=== PATIENT | female | born 1975 | race Hispanic/Latino ===

== ENCOUNTER 2021-10-10 23:22 | Emergency (ER) | payer BC ==
--- OUTSIDE RECORDS SUMMARY | 2021-10-10 23:24 | XMS REPORT | Clinical Summary ---
:1975 Author Organization [facility] Address [address] [place] [address] Care Team Providers Name Role Phone Anastacia Goyal MD Primary Care Provider Allergies No known active allergies Medications Medication Sig Dispensed Refills Start Date End Date Status phentermine (ADIPEX-P) Take 37.5 mg by 0 08/11/2017 Active 37.5 mg tablet mouth twice daily. multivitamin capsule Take 1 capsule by 0 Active mouth daily. fish oil-omega-3 fatty Take 2 g by mouth 0 Active acids 300-1,000 mg daily. capsule venlafaxine Take 1 capsule 30 capsule 6 09/02/2018 A ctive (EFFEXOR-XR) 37.5 mg (37.5 mg) by 24 hr mouth every capsuleIndications: morning. Malignant neoplasm of endocervix cholecalciferol, Take 1 tablet 30 tablet 0 09/02/2018 Active vitamin D3, (1,000 Units) by (cholecalciferol) mouth daily. 1,000 units tabletIndications: Malignant neoplasm of endocervix Active Problems Problem Noted Date Menopause 09/02/2018 Cervical cancer Surgical History Surgery Date Site/Laterality Comments SECTION, CLASSIC 05/26/1999 - 05/25/2000 SECTION, CLASSIC 05/26/2007 - 05/25/2008 Family History Medical History Relation Name Comments -Unknown cancer Maternal Aunt Relation Name Status Comments Maternal Aunt Social History Tobacco Use Types Packs/Day Years Used Date Former Smoker Cigarettes 0 Quit: 1996 Smokeless Tobacco: Never Used Comments: pt smoked socially Alcohol Use Standard Drinks/Week Comments Yes 0 (1 standard drink = 0.6 oz pure alcoho l) not currently Alcohol Habits Answer Date Recorded How often do you have a drink containing alcohol? Not asked How many drinks containing alcohol do you have on a Not aske d typical day when you are drinking? How often do you have six or more drinks on one occasion? No t asked Comment: not currently 08/15/2017 Sex Assigned at Date Recorded Not on file Obstetrics History Para Term AB IAB SAB Ectopic Multiple Living Live Births 5 5 4 4 Date Outcome GA Total Labor/2nd/3rd Weight Sex Delivery Anes PTL Maggi A 1 A5 Name Clin Labor Term Term Term Term Para Comments MENARCHE- 13 OCPS- DEPO 2-3 YRS; HRT- NEVER PAP- HX of abn pap started in ; hx of cryo; Hx of cervical ca mmg- never Last Filed Vital Signs Not on file Plan of Treatment Health Maintenance Due Date Last Done Comments COVID-19 Vaccination (1) 1981 Results Not on fileafter 10/10/2020 Insurance Payer Benefit Plan / Subscriber ID Effective Dates Phone Addre ss Type Group [place]PO POS [id number] 2015-Present [id number] [place] [address] Gerardo Personal/Family Self 1975 [address] ([place]) [place] [address] Gerardo Personal/Family Self 1975 [address] ([place]) [place] [id number] 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
--- OUTSIDE RECORDS SUMMARY | 2021-10-10 23:24 | XMS REPORT | Continuity of Care Document ---
:1975 Author Organization [facility] t Address [address] [place] [address] Care Team Providers Name Role Phone SAMANTHA LAWAnandHOME Primary Care Physician Unavailable García Cartwright Attending Clinician Eleni AGUILARP Attending Clinician Shonda ALFARO Attending Clinician Unavailable Doctor Unassigned, Name Attending Clinician Unavailable Only, Db Test Attending Clinician Unavailable Juan Miguel GUILLEN Attending Clinician JUAN MIGUEL Attending Clinician Unavailable Payers Payer Name Policy Type Policy Number Effective Date Expiration Date S ource Problems Condition Condition Condition Status Onset Resolution Last Treating Co mments Source Name Details Category Date Date Treatment Clinician Date Menopause Menopause Disease Active 4-Jeni Lambert 00:00: n 00 No known No known Disease Unive rs active active ity of problems problems [facility] Cervical Cervical Disease Active cancer cancer Fausto kapadia Allergies, Adverse Reactions, Alerts Allergy Allergy Status Severity Reaction(s) Onset Inactive Treating Comm ents Source Name Type Date Date Clinician NO KNOWN Drug Active Univers ALLERGIE Class ity of S [facility] Family History Family Member Diagnosis Comments Start Date Stop Date Source Maternal aunt -Unknown cancer Social History Social Habit Start Date Stop Date Quantity Comments Source History LAVERN Bans[place] Alcohol Binge History of Current smoker MD Fausto kapadia tobacco use History LAVERN [place] Alcohol Frequency History LAVERN [place] Alcohol Std Drinks Exposure to 2021-09-30 2021-10-10 Not sure University of SARS-CoV-2 00:00:00 09:03:00 [facility] (event) Branch Alcohol intake 2018-09-11 2018-09-11 Current drinker MD Cherie to 00:00:00 00:00:00 of alcohol (finding) History SDOH 2017-08-15 2017-08-15 not currently MD Baca on Alcohol Comment 00:00:00 00:00:00 Tobacco Comment 2017-08-15 2017-08-15 pt smoked MD Baca on 00:00:00 00:00:00 socially Tobacco use and 2017-08-15 2017-08-15 Smokeless tobacco Rolf exposure 00:00:00 00:00:00 non-user Sex Ass[birth year] At [birth year] MD Baca on 00:00:00 00:00:00 Smoking Status Start Date Stop Date Source Never smoker [facility] Ex-smoker 2017-08-15 00:00:00 2017-08-15 00:00:00 MD Brooks son Medications Ordered Filled Start Stop Current Ordering Indication Dosage Frequency Signature Comments Components Source Medication Medication Date Date Medication? Clinician (SIG) Name Name traMADoL 50 Yes TAKE ONE Un cuauhtemoc mg tablet 5-16 (1) ity of 00:00: TABLET(S) [place] 00 BY MOUTH Medical TWICE A Branch DAY NEEDED FOR PAIN. WEGOVY 0.25 Yes INJECT 0.5 Univers mg/0.5 mL 4-05 ML(S) ity of PnIj [place] 00:00: (0.25MG) [place] injection 00 SUBCUTANEO Medi [place] USLY ONCE Branch A WEEK. multivitami Yes 1{capsu Take 1 M D n capsule 4-10 le} capsule by Seth rso 14:00: mouth n 24 daily. fish Yes 2g Take 2 g MD oil-omega-3 4-10 by mouth Seth rso fatty acids 14:00: daily. n 300-1,000 24 mg capsule venlafaxine Yes Malignant 37.5mg Take 1 MD (EFFEXOR-XR 4-10 neoplasm of capsule Anderso ) 37.5 mg 00:00: endocervix (37.5 mg) n 24 hr 00 by mouth capsule every morning. cholecalcif Yes Malignant 1000U Take 1 MD cary, 4-10 neoplasm of tablet Todd so vitamin D3, 00:00: endocervix (1,000 n (cholecalci 00 Units) by ferol) mouth 1,000 units daily. tablet phentermine Yes 37.5mg Take 37.5 MD (ADIPEX-P) 3-19 mg by Anderso 37.5 mg 00:00: mouth n tablet 00 twice daily. HYDROcodone Yes 1{tbl} Take 1 Tab Univers -acetaminop 8-01 by mouth ity of [place] ([place] 07:26: every 6 [place] 5) 5-325 mg 27 (six) Medical tablet hours as Branch needed. HYDROcodone Yes 1{tbl} Take 1 Tab Univers -acetaminop 8-01 by mouth ity of [place] ([place] 07:26: every 6 [place] 5) 5-325 mg 27 (six) Medical tablet hours as Branch needed. HYDROcodone Yes 1{tbl} Take 1 Tab Univers -acetaminop 8-01 by mouth ity of [place] ([place] 07:26: every 6 [place] 5) 5-325 mg 27 (six) Medical tablet hours as Branch needed. ondansetron Yes 4mg Take 1 Tab Univers (ZOFRAN) 4 8-01 by mouth ity o f mg tablet 00:00: every 6 [place] 00 (six) Medical hours as Branch needed for Nausea and Vomiting (N/V). ondansetron 2014-0 Yes 4mg Take 1 Tab Univers (ZOFRAN) 4 8-01 by mouth ity o f mg tablet 00:00: every 6 [place] 00 (six) Medical hours as Branch needed for Nausea and Vomiting (N/V). ondansetron 2014-0 Yes 4mg Take 1 Tab Univers (ZOFRAN) 4 8-01 by mouth ity o f mg tablet 00:00: every 6 [place] 00 (six) Medical hours as Branch needed for Nausea and Vomiting (N/V). Vital Signs Vital Name Observation Time Observation Value Comments Source Systolic blood 2021-10-10 14:19:00 132 mm[Hg] Univer sity of pressure [facility] Diastolic blood 2021-10-10 14:19:00 88 mm[Hg] Unive [facility] Heart rate 2021-10-10 14:18:00 72 /min [facility] Body temperature 2021-10-10 14:18:00 36.5 Jaja [facility] Respiratory rate 2021-10-10 14:18:00 18 /min [facility] Body height 2021-10-10 14:18:00 154.9 cm [facility] Body weight 2021-10-10 14:18:00 69.446 kg [facility] BMI 2021-10-10 14:18:00 28.93 kg/m2 [facility] Oxygen saturation in 2021-10-10 14:18:00 98 /min [facility] Arterial blood by [facility] Pulse oximetry [place] Procedures Procedure Date / Time Performing Clinician Source Performed NO SHOW OR MISSED 2021-10-10 14:05:59 Doctor Unassigned, [facility] APPOINTMENT POLICY [facility] ACKNOWLEDGEMENT Plan of Care Planned Activity Planned Date Details Comments Source Future Scheduled Test 1981 00:00:00 COVID-19 Vaccination MD Bansal (1) [code = COVID-19 Vaccination (1)] Encounters Start End Encounter Admission Attending Care Care Encounter Source Date/Time Date/Time Type Type Clinicians Facility Department ID 2021-10-10 2021-10-10 Urgent García Alfaro [facility] [id number] Univers 09:20:00 09:40:00 [facility] [id number] [facility] [id number] Rico as KANIKA?BLEA [id number] [address] MEDICAL OFFICE BUILDING 2021-10-10 2021-10-10 Outpatient R [facility] [id number] Univers 09:20:00 09:20:00 [id number] ity [facility] 2021-10-10 2021-10-10 Outpatient R ANGELINA [facility] [id number] Univers 09:20:00 09:20:00 GARCÍA callejas [facility] 2021-10-10 2021-10-10 Orders Doctor RUSHING [id number] Univers 00:00:00 00:00:00 Only Unassigned, SINA [id number] ity of [place] [id number] [place] as [id number] [address] 2021-06-03 2021-06-03 Laboratory Only, Ang Db Test [facility] [id number] Univers 20:15:00 20:15:00 Only Juan Miguel [facility] [id number] ity of [place] [id number] [place] as KANIKA?BLEA [id number] [address] MEDICAL OFFICE BUILDING 2021-06-03 2021-06-03 Outpatient R JUAN MIGUEL [facility] [id number] Univers 20:15:00 16:33:23 KENNEDY [facility] Results This patient has no known results.
[2021-10-11] MEDS ORDERED: dexAMETHasone 10 MG/ML VIAL ONE (00:17)
[2021-10-11] MEDS ORDERED: NA CHLORIDE 0.9% 1,000 ML ONE (00:17)
[2021-10-11] MEDS ORDERED: ONDANSETRON 4 MG/2 ML VIAL ONE (00:17)
[2021-10-11] MEDS ORDERED: MORPHINE 2 MG/ML SYR ONE (00:17)
--- NOTE | 2021-10-11 01:46 | ER ---
Nurse's Notes [facility] Name: Alisson Carrillo Age: 46 yrs Sex: Female : 1975 Arrival Date: 10/10/2021 Time: 23:25 Bed 3 Private MD: Diagnosis: Migraine, unspecified, not intractable, without status migrainosus Presentation: 10/11 00:02 Chief complaint: Patient states: I have a throbbing pain behind my eyes, I started at jb4 5pm yesterday. I started vomiting then. I have vomited twice so far. I feel nauseous and still have that pain behind my eyes. Coronavirus screen: At this time, the client does not indicate any symptoms associated with coronavirus-19. Ebola Screen: No symptoms or risks identified at this time. Initial Sepsis Screen: Does the patient meet any 2 criteria? No. Patient's initial sepsis screen is negative. Does the patient have a suspected source of infection? No. Patient's initial sepsis screen is negative. Risk Assessment: Do you want to hurt yourself or someone else? Patient reports no desire to harm self or others. Onset of symptoms was October 11, 2021. Transition of care: patient was not received from another setting of care. 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 - Social history:: Smoking status: Patient denies any tobacco usage or history of. - Family history:: not pertinent. - Hospitalizations: : No recent hospitalization is reported. Screenin:40 Abuse screen: Denies threats or abuse. Nutritional screening: No deficits noted. ll3 Tuberculosis screening: No symptoms or risk factors identified. Fall Risk No fall in past 12 months (0 pts). No secondary diagnosis (0 pts). IV access (20 points). Ambulatory Aid- None/Bed Rest/Nurse Assist (0 pts). Gait- Normal/Bed Rest/Wheelchair (0 pts) Mental Status- Oriented to own ability (0 pts). Total Kaur Fall Scale indicates No Risk (0-24 pts). Assessment: 00:39 General: Appears uncomfortable, Behavior is calm, cooperative. Pain: Complains of pain ll3 in forehead Pain began 2-3 days ago. Neuro: Level of Consciousness is awake, alert, obeys commands, Oriented to person, place, time, situation, Reports dizziness, headache frontal area, weakness. GI: Abdomen is round non-distended, Reports nausea, vomiting. Derm: Skin is pink, warm \T\ dry. 01:35 General: Appears in no apparent distress. as6 Vital Signs: 00:02 BP 136 / 95; Pulse 75; Resp 16; Pulse Ox 99% on R/A; Weight 69.4 kg (R); Height 5 ft. 1 jb4 in. (154.94 cm); Pain 8/10; 00:43 BP 125 / 83; Pulse 66; Resp 15; Pulse Ox 99% ; ll3 01:34 BP 133 / 93; Pulse 73; Resp 18 S; Pulse Ox 99% on R/A; as6 02:00 BP 143 / 87; Pulse 67; Resp 18 S; Pulse Ox 99% on R/A; as6 00:02 Body Mass Index 28.91 (69.40 kg, 154.94 cm) jb4 [place] Coma Score: 01:44 Eye Response: spontaneous(4). Verbal Response: oriented(5). Motor Response: obeys rn commands(6). Total: 15. ED Course: 10/10 23:25 Patient arrived in ED. bp1 23:29 Jelani Burden MD is Attending Physician. rn 10/11 00:05 Triage completed. jb4 00:06 Arm band placed on right wrist. jb4 00:39 Dino Argueta, SAGAR is Primary Nurse. ll3 00:40 Patient has correct armband on for positive identification. Placed in gown. Bed in low ll3 position. Call light in reach. Side rails up X 1. Adult w/ patient. 00:40 Inserted saline lock: 22 gauge in left antecubital area, using aseptic technique. ll3 00:52 CT Head Brain wo Cont In Process Unspecified. EDMS 02:11 No provider procedures requiring assistance completed. IV discontinued, intact, as6 bleeding controlled, No redness/swelling at site. Pressure dressing applied. Administered Medications: 00:35 Drug: Zofran (Ondansetron) 4 mg Route: IVP; Site: left antecubital; ll3 02:10 Follow up: Response: No adverse reaction as6 00:38 Drug: Decadron - Dexamethasone 10 mg Route: IVP; Site: left antecubital; ll3 02:10 Follow up: Response: No adverse reaction as6 00:39 Drug: morphine 2 mg Route: IVP; Site: left antecubital; ll3 02:10 Follow up: Response: No adverse reaction; RASS: Alert and Calm (0) as6 00:40 Drug: NS 0.9% 1000 ml Route: IV; Rate: 1000 ml; Site: left antecubital; ll3 02:10 Follow up: Response: No adverse reaction; IV Status: Completed infusion; IV Intake: as6 1000ml Medication: 02:11 VIS not applicable for this client. as6 Intake: 02:10 IV: 1000ml; Total: 1000ml. as6 Outcome: 01:46 Discharge ordered by . rn 02:11 Discharged to home ambulatory, with family. as6 02:11 Condition: stable 02:11 Discharge instructions given to patient, Instructed on discharge instructions, follow up and referral plans. Demonstrated understanding of instructions, follow-up care. 02:12 Patient left the ED. as6 Signatures: Dispatcher [employer] EDJelani Garcia MD MD rn Bryson, James, RN RN jb4 Alesia Francisco Ashby, RN RN as6 Dino Argueta RN RN ll3
--- NOTE | 2021-10-11 01:46 | EDPHYS ---
Physician Documentation [facility] [place] [facility] Name: Alisson Carrillo Age: 46 yrs Sex: Female : 1975 Arrival Date: 10/10/2021 Time: 23:25 Bed 3 Private MD: ED Physician Jelani Burden HPI: 10/11 00:24 This 46 yrs old Female presents to ER via Ambulatory with complaints of rn Vomiting, Headache. 00:24 The patient presents to the emergency department with nausea, vomiting. rn 00:24 The patient complains of pain to the forehead and right eye. The patient describes the rn headache as aching. Onset: The symptoms/episode began/occurred yesterday. Associated signs and symptoms: Pertinent positives: nausea, vomiting, Pertinent negatives: altered mental status, fever, neck stiffness, rash, vision changes, vision loss, vertigo. Severity of symptoms: At its worst the pain was moderate, "similar to past headaches", in the emergency department the pain is unchanged. The symptoms are alleviated by nothing. the symptoms are aggravated by nothing. The patient has experienced similar episodes in the past. The patient has not recently seen a physician. Pt reports hx of headaches in past, is similar to others today, only worse. Reports throbbing, right side and behind right eye. No fever. No neck stiffness. No trauma. No famhx of neurological problems. No focal neuro complaints. No vision changes. Does not feel ill. . 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 - Social history:: Smoking status: Patient denies any tobacco usage or history of. - Family history:: not pertinent. - Hospitalizations: : No recent hospitalization is reported. ROS: 00:24 Constitutional: Negative for fever, chills, and weight loss, Eyes: Negative for injury, rn pain, redness, and discharge, ENT: Negative for injury, pain, and discharge, Neck: Negative for injury, pain, and swelling, Cardiovascular: Negative for chest pain, palpitations, and edema, Respiratory: Negative for shortness of breath, cough, wheezing, and pleuritic chest pain, Abdomen/GI: + nausea/vomiting, neg for abd pain/diarrhea Back: Negative for injury and pain, : Negative for injury, bleeding, discharge, and swelling, MS/Extremity: Negative for injury and deformity, Skin: Negative for injury, rash, and discoloration, Neuro: Negative for weakness, numbness, tingling, and seizure. Exam: 00:24 Constitutional: This is a well developed, well nourished patient who is awake, alert, rn and in no acute distress. Head/Face: Normocephalic, atraumatic. Eyes: Pupils equal round and reactive to light, extra-ocular motions intact. Periorbital areas with no swelling, redness, or edema. Neck: Trachea midline, no masses palpated, and no cervical lymphadenopathy. Supple, full range of motion without nuchal rigidity, or vertebral point tenderness. No Meningismus. Cardiovascular: Regular rate and rhythm. No pulse deficits. Respiratory: No increased work of breathing, no retractions or nasal flaring. Skin: Warm, dry MS/ Extremity: Pulses equal, no cyanosis. Neuro: Awake and alert, GCS 15, oriented to person, place, time, and situation. Cranial nerves II-XII grossly intact. Motor strength 5/5 in all extremities. Sensory grossly intact. Cerebellar exam normal. Normal gait. Vital Signs: 00:02 BP 136 / 95; Pulse 75; Resp 16; Pulse Ox 99% on R/A; Weight 69.4 kg (R); Height 5 ft. 1 jb4 in. (154.94 cm); Pain 8/10; 00:43 BP 125 / 83; Pulse 66; Resp 15; Pulse Ox 99% ; ll3 01:34 BP 133 / 93; Pulse 73; Resp 18 S; Pulse Ox 99% on R/A; as6 02:00 BP 143 / 87; Pulse 67; Resp 18 S; Pulse Ox 99% on R/A; as6 00:02 Body Mass Index 28.91 (69.40 kg, 154.94 cm) jb4 [place] Coma Score: 01:44 Eye Response: spontaneous(4). Verbal Response: oriented(5). Motor Response: obeys rn commands(6). Total: 15. MDM: 10/10 23:29 Patient medically screened. rn 10/11 01:44 Differential diagnosis: cluster headache, hypertensive headache, migraine, neoplasm, rn tension headache, trigeminal neuralgia, vasomotor headache. Data reviewed: vital signs, nurses notes, radiologic studies, CT scan, and as a result, I will discharge patient. Counseling: I had a detailed discussion with the patient and/or guardian regarding: the historical points, exam findings, and any diagnostic results supporting the discharge/admit diagnosis, radiology results, the need for outpatient follow up, to return to the emergency department if symptoms worsen or persist or if there are any questions or concerns that arise at home. Response to treatment: the patient's symptoms have resolved after treatment, the patient's condition has returned to base line, the patient is now symptom free, and as a result, I will discharge patient. Special discussion: I discussed with the patient/guardian in detail that at this point there is no indication for admission to the hospital. It is understood, however, that if the symptoms persist or worsen the patient needs to return immediately for re-evaluation. Based on the history and exam findings, there is no indication for further emergent testing or inpatient evaluation. I discussed with the patient/guardian the need to see the neurologist for further evaluation of the symptoms. ED course: Headache resolved, will dc home with return precautions, urged to f/u with neurology. Pt is happy and thankful.. 10/11 00:01 Order name: CT Head Brain wo Cont rn 10/11 00:01 Order name: IV Start; Complete Time: 00:42 rn Administered Medications: 00:35 Drug: Zofran (Ondansetron) 4 mg Route: IVP; Site: left antecubital; ll3 02:10 Follow up: Response: No adverse reaction as6 00:38 Drug: Decadron - Dexamethasone 10 mg Route: IVP; Site: left antecubital; ll3 02:10 Follow up: Response: No adverse reaction as6 00:39 Drug: morphine 2 mg Route: IVP; Site: left antecubital; ll3 02:10 Follow up: Response: No adverse reaction; RASS: Alert and Calm (0) as6 00:40 Drug: NS 0.9% 1000 ml Route: IV; Rate: 1000 ml; Site: left antecubital; ll3 02:10 Follow up: Response: No adverse reaction; IV Status: Completed infusion; IV Intake: as6 1000ml Disposition Summary: 10/11/21 01:46 Discharge Ordered Location: Home rn Problem: an acute exacerbation rn Symptoms: have improved rn Condition: Stable rn Diagnosis - Migraine, unspecified, not intractable, without status migrainosus rn Followup: rn - With: Private Physician - When: As needed - Reason: Recheck today's complaints, Re-evaluation by your physician Discharge Instructions: - Discharge Summary Sheet rn - Migraine Headache rn - Recurrent Migraine Headache rn Forms: - Medication Reconciliation Form rn - Thank You Letter rn - 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
[2021-10-11 02:24] VITALS: O2SAT 99
[2021-10-11 02:41] VITALS: BP 143/87
--- NOTE | 2021-10-11 11:15 | RAD REPORT ---
EXAM DESCRIPTION: CT - Head Brain Wo Cont - 10/11/2021 4:21 am CLINICAL HISTORY: Headache, new or worsening, positional COMPARISON: None Available. TECHNIQUE: Multiple helical axial tomographic images were obtained of the head without intravenous c ontrast. This exam was performed according to our departmental dose-optimization program, which inclu celeste automated exposure control, adjustment of the mA and/or kV according to patient size and/or use o f iterative reconstruction technique. FINDINGS: There is no acute intracranial hemorrhage. No mass. No midline shift. No ventriculomegaly. Solano-white matter differentiation is maintained. Paranasal sinuses are clear. Mastoid air cells and middle ear spaces are clear. Orbits and orbital co ntents are unremarkable. Osseous structures are unremarkable. Surrounding soft tissues are unremarkable. IMPRESSION: No acute intracranial process. Electronically signed by: Fernando Stevens MD 10/11/2021 1:08 AM CDT Due to temporary technical issues with the PACS/Fluency reporting system, reports are being signed by the in house radiologist without review as a courtesy to ensure prompt reporting. The interpreting r adiologist is fully responsible for the content of the report.
== END 2021-10-11 02:12 | disposition home or self-care (01) ==
LOC: ER 23:22
DX: G43.909 Migraine, unspecified, not intractable, without status migrainosus (principal); R11.2 Nausea with vomiting, unspecified; Z85.41 Personal history of malignant neoplasm of cervix uteri
CPT/HCPCS: 96361; 70450; 96375; 96374; 99284; J1100; J2270; J7030; J2405

== ENCOUNTER 2022-12-19 17:37 | Emergency (ER) | payer BC ==
--- OUTSIDE RECORDS SUMMARY | 2022-12-19 17:40 | XMS REPORT | Clinical Summary ---
:1975 Author Organization [facility] Address [address] [place] [address] Care Team Providers Name Role Phone Anastacia [...] Tobacco Use Types Packs/Day Years Used Date Smoking Tobacco: Former Cigarettes 0 Quit : 1996 Smokeless Tobacco: Never Comments: pt smoked socially Alcohol Use Standard Drinks/Week Comments Yes 0 (1 standard drink = 0.6 oz pure alcoho l) not currently Sex Assigned at Date Recorded Not on [...] Due Date Last Done Comments COVID-19 Vaccination (#1) 1975 Results Not on fileafter 12/19/2021 Insurance Payer Benefit Plan / Subscriber ID Effective Dates Phone Addre ss Type Group [place] POS [id number] 2015-Present [id number] [place] [address] Gerardo Personal/Family Self 1975 [address] ([place]) [place] [address] Gerardo Personal/Family Self 1975 [address] ([place] [phone] 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
--- OUTSIDE RECORDS SUMMARY | 2022-12-19 17:41 | XMS REPORT | Continuity of Care Document ---
:1975 Author Organization [facility] t Address [address] [place] [address] [place] [id number] Care Team Providers Name Role Phone THANH FRANCO Primary Care Physician Unavailable GARCÍA TRUJILLO Attending Clinician Unavailable Cassandra CLOAK ROOM ATTENDANTGarcía Davis Attending Clinician Alesia Resendiz Attending Clinician Doctor Unassigned, [place] Attending Clinician Unavailable BERNADETTE BULLARD Attending Clinician Unavailable Only, Ang Db Test Attending Clinician Unavailable Bernadette Snowden Attending Clinician RACHANA PRICE Attending Clinician Unavailable UNKNOWN, ATTENDING Attending Clinician Unavailable СЕРГЕЙ MCQUEEN Attending Clinician Unavailable ROYCE CONNOLLY Attending Clinician Unavailable Payers Payer Name Policy Type Policy Number Effective Date Expiration Date S tanvir [facility] [id number] 2013 00:00:00 Problems Condition Condition Condition Status Onset Resolution Last Treating Co mments Source Name Details Category Date Date Treatment Clinician Date Menopause Menopause Disease Active Uni vers 4-10 ity of 00:00: [place] 00 [facility] No known No known Disease Unive rs active active ity of problems problems [facility] Cervical Cervical Disease Active Unive rs cancer cancer ity of [place] MD [facility] Allergies, Adverse Reactions, Alerts Allergy Allergy Status Severity Reaction(s) Onset Inactive Treating Comm ents Source Name Type Date Date Clinician No Known Propensi Active Method i Drug ty to 11-17 st Allergie adverse 00:00: Hospita s reaction 00 l s to drug NO KNOWN Drug Active Univers ALLERGIE Class ity of S [facility] Family History Family Member Diagnosis Comments Start Date Stop Date Source Other Other [facility] Maternal aunt -Unknown cancer [facility] [place] MD [facility] [place] Social History Social Habit Start Date Stop Date Quantity Comments Source Gender identity [facility] History of tobacco Current smoker Un iversity of use [place] MD Todd cook [facility] Exposure to 2021-09-30 2021-10-10 Not sure [facility]-CoV-2 (event) 00:00:00 09:03:00 [facility] Tobacco use and 2019-12-27 2019-12-27 Never used Universit y of exposure 00:00:00 00:00:00 [facility] Alcohol intake 2018-09-11 2018-09-11 Current drinker Unive rsity of 00:00:00 00:00:00 of alcohol [place] MD Todd [facility] Tobacco Comment 2017-08-15 2017-08-15 pt smoked Universit y of 00:00:00 00:00:00 socially [place] MD Todd cook [facility] Alcohol Comment 2017-08-15 2017-08-15 not currently Univer sity of 00:00:00 00:00:00 [place] MD Todd cook [facility] History of Social 2015-11-18 2015-11-[address] function 00:00:00 00:00:00 Hospital Sex Assigned At [birth year] Universit y of 00:00:00 00:00:00 [place] MD Todd cook [facility] Smoking Status Start Date Stop Date Source Never smoker [facility] Ex-smoker 2017-08-15 00:00:00 2017-08-15 00:00:00 Universi ty of [facility] Medications Ordered Filled Start Stop Current Ordering Indication Dosage Frequency Signature Comments Components Source Medication Medication Date Date Medication? Clinician (SIG) Name Name traMADoL 50 Yes TAKE ONE Un cuauhtemoc mg tablet 5-16 (1) ity of 00:00: TABLET(S) [place] [id number] BY MOUTH Medical TWICE A Branch DAY NEEDED FOR PAIN. WEGOVY 0.25 Yes INJECT 0.5 Univers mg/0.5 mL 4-05 ML(S) ity of PnIj SC 00:00: (0.25MG) [place] injection 00 SUBCUTANEO Medi [place] USLY ONCE Branch A WEEK. multivitami Yes 1{capsu Take 1 U nivers n capsule 4-10 le} capsule by ity of 14:00: mouth [place] 24 daily. MD [facility] fish Yes 2g Take 2 g Univers oil-omega-3 4-10 by mouth ity of fatty acids 14:00: [place]. [place] 300-1,000 24 MD mg capsule [facility] venlafaxine Yes Malignant 37.5mg Take 1 Univers (EFFEXOR-XR 4-10 neoplasm of capsule ity of ) 37.5 mg 00:00: endocervix (37.5 mg) [place] 24 hr 00 by mouth MD capsule every [place] morning. n [facility] [place] cholecalcif Yes Malignant 1000U Take 1 Univers cary, 4-10 neoplasm of tablet ity o f vitamin D3, 00:00: endocervix (1,000 [place] (cholecalci 00 Units) by MD kwong) mouth [place] 1,000 units daily. n [facility] phentermine Yes 37.5mg Take 37.5 Univers (ADIPEX-P) 3-19 mg by ity of 37.5 mg 00:00: mouth [place] tablet 00 twice MD daily. [facility] HYDROcodone Yes 1{tbl} Take 1 Tab Univers [...] Medical tablet hours as Branch needed. ondansetron 2014-0 Yes 4mg Take 1 Tab Univers (ZOFRAN) 4 8-01 by mouth ity o f mg tablet 00:00: every 6 [place] 00 (six) Medical hours as Branch needed for Nausea and Vomiting (N/V). ondansetron 2015-0 Yes 4mg Take 1 Tab Univers (ZOFRAN) 4 8-01 by mouth ity o f mg tablet 00:00: every 6 [place] 00 (six) Medical hours as Branch needed for Nausea and Vomiting (N/V). ondansetron 2015-0 Yes 4mg Take 1 Tab Univers (ZOFRAN) 4 8-01 by mouth ity o f mg tablet 00:00: every 6 [place] 00 (six) Medical hours as Branch needed for Nausea and Vomiting (N/V). Vital Signs Vital Name Observation Time Observation Value Comments Source Systolic blood 2021-10-10 14:19:00 132 mm[Hg] [facility] Diastolic blood 2021-10-10 14:19:00 88 mm[Hg] [facility] Heart rate 2021-10-10 14:18:00 72 /min [facility] Body temperature 2021-10-10 14:18:00 36.5 Jaja [facility] Respiratory rate 2021-10-10 14:18:00 18 /min [facility] Body height 2021-10-10 14:18:00 154.9 cm [facility] Body weight 2021-10-10 14:18:00 69.446 kg [facility] BMI 2021-10-10 14:18:00 28.93 kg/m2 [facility] Oxygen saturation in 2021-10-10 14:18:00 98 /min [facility] Arterial blood by [place] [facility] Pulse oximetry Branch Procedures Procedure Date / Time Performing Clinician Source Performed NO SHOW OR MISSED 2021-10-10 14:05:59 Doctor Unassigned, [facility] APPOINTMENT POLICY [place] ACKNOWLEDGEMENT Plan of Care Planned Activity Planned Date Details Comments Source Future Scheduled 2022-11-12 Screening for [facility] Test 09:08:45 malignant neoplasm of colon (procedure) [code = 304767062] Future Scheduled 2022-11-12 [facility] Test 09:08:45 malignant neoplasm of colon (procedure) [code = 261139745] Future Scheduled 2022-11-12 [facility] Test 09:08:45 malignant neoplasm of colon (procedure) [code = 181167464] Future Scheduled 2022-11-12 COVID-19 VACCINE (#[facility]) [facility] Test 09:08:45 [code = COVID-19 VACCINE (#1)] Future Scheduled 2022-11-12 BREAST CANCER [facility] Test 09:08:45 SCREENING [code = BREAST CANCER SCREENING] Future Scheduled 2022-11-12 [facility] Test 09:08:45 malignant neoplasm of cervix (procedure) [code = 428755977] Future Scheduled 2022-11-12 [facility] Test 09:08:45 malignant neoplasm of colon (procedure) [code = 311377766] Future Scheduled 2022-11-12 [facility] Test 09:08:45 malignant neoplasm of colon (procedure) [code = 008856817] Future Scheduled 2022-11-12 INFLUENZA VACCINE [facility] Test 09:08:45 [code = INFLUENZA VACCINE] Future Scheduled 2021-11-28 COVID-19 Vaccination Uni [facility] Test 05:34:24 (#1) [code = COVID-19 [facility] (#1)] Center Encounters Start End Encounter Admission Attending Care Care Encounter Source Date/Time Date/Time Type Type Clinicians Facility Department ID 2021-10-10 2021-10-10 Outpatient R CASSANDRA [facility] [id number] Univers 09:20:00 09:43:56 GARCÍA pelayo f [facility] 2021-10-10 2021-10-10 Urgent García Trujillo [facility] [id number] Univers 09:20:00 09:40:00 Care [facility] [id number] itximena [facility] [id number] [place] as KANIKA?BLEA [id number] [address] MEDICAL OFFICE BUILDING 2021-10-10 2021-10-10 Orders Doctor RUSHING [id number] Univers 00:00:00 00:00:00 Only Unassigned, SINA [id number] [facility] [id number] [place] as [id number] [address] 2021-06-03 2021-06-03 Outpatient R UJAN MIGUEL [facility] [id number] Univers 20:15:00 20:15:00 [facility] 2021-06-03 2021-06-03 Laboratory Only, Ang Db Test [facility] [id number] Univers 20:15:00 20:15:00 Only Juan Miguel [facility] [id number] ity of [place] [id number] [place] as KANIKA?BLEA [id number] [address] MEDICAL OFFICE BUILDING 2021-06-03 2021-06-03 Outpatient R JUAN MIGUEL [facility] [id number] Univers 20:15:00 16:33:23 [facility] 2021-02-05 2021-02-05 Outpatient R DEE [facility] [id number] Univers 12:00:00 12:00:00 RACHANA [facility] 2021-02-04 2021-02-04 Outpatient R RASHAWN [facility] [id number] Univers 10:00:00 10:00:00 ATTENDING [facility] 2020-09-17 2020-09-17 Outpatient R RICHAR [facility] [id number] Univers 09:20:00 09:20:00 СЕРГЕЙ [facility] 2019-12-27 2019-12-27 Outpatient R MOHSEN [facility] [id number] Univers 10:00:00 10:00:00 ROYCE [facility] Results This patient has no known results.
[2022-12-19] MEDS ORDERED: ONDANSETRON 4 MG/2 ML VIAL ONE (17:50)
[2022-12-19] MEDS ORDERED: MORPHINE 4 MG/ML SYR ONE ×2 (17:50→19:56)
[2022-12-19] MEDS ORDERED: NA CHLORIDE 0.9% 1,000 ML ONE (17:50)
[2022-12-19 18:09] LABS: Absolute Lymphocytes (CBC) 1.2 K/uL (0.7-4.9); Hematocrit 39.6 % (36.0-45.0); Lymphocytes % 13.4 % (15.3-44.8); MCV 87.8 fL (80-100); MPV 8.1 fL (7.6-11.3); RBC Red Blood Cell Count 4.51 M/uL (3.86-4.86)
[2022-12-19] MEDS ORDERED: FAMOTIDINE 20 MG/2 ML VIAL IV ONE (18:14)
--- NOTE | 2022-12-19 18:15 | RAD REPORT ---
EXAM DESCRIPTION: RAD - Chest Single View - 12/19/2022 6:02 pm CLINICAL HISTORY: upper abdomen pain COMPARISON: No comparisons FINDINGS: Lines: None. Lungs: No evidence of edema or pneumonia. Pleural: No significant pleural effusions or pneumothorax. Cardiac: The heart size is within normal limits. Mediastinum: Within normal limits. Bones: No acute fractures. Other: None IMPRESSION: No acute cardiopulmonary disease.
[2022-12-19 18:37] LABS: Albumin 3.8 g/dL (3.4-5.0); Bilirubin Total 0.8 mg/dL (0.2-1.0); Potassium 3.2 mEq/L (3.5-5.1); Protein, Total 7.2 g/dL (6.4-8.2)
--- NOTE | 2022-12-19 18:41 | RAD REPORT ---
EXAM DESCRIPTION: CTAbdomen Pelvis W Contrast - 12/19/2022 6:18 pm CLINICAL HISTORY: ABD PAIN COMPARISON: Abdomen Pelvis W Contrast dated 03/21/2017 TECHNIQUE: CT of the abdomen and pelvis was performed. All CT scans are performed using dose optimization technique as appropriate and may include automated exposure control or mA/KV adjustment according to patient size. FINDINGS: Lower chest: No acute abnormality. Liver: No acute abnormality or suspicious lesions. Biliary: No biliary ductal dilatation. Stomach: No significant focal abnormality. Duodenum: No significant focal abnormality. Pancreas: No significant abnormality. Spleen: No significant abnormality. Adrenal: No suspicious lesions. Kidney/ureter: No hydronephrosis. No renal calculi. Retroperitoneum: No retroperitoneal adenopathy. Vascular: No aneurysm. Bowel: Inflammatory changes are present the ileum. Upstream dilatation is present measuring up to 2.2 cm. Mesenteric edema is present.. Peritoneum: Small volume of ascites. Small fat containing umbilical hernia. Bladder: Grossly unremarkable. Reproductive: Hysterectomy. Bones: No acute fracture. Other: n/a IMPRESSION: Long segment inflammatory changes involving the ileum with upstream dilatation that may reflect a partial small bowel obstruction secondary to an inflammatory stricture. Source of the infla mmation could be secondary to postradiation changes. The patient has reportedly had cervical cancer. It could also be seen with infectious and inflammatory etiologies such as inflammatory bowel disease.
[2022-12-19] MEDS ORDERED: POTASSIUM 25 MEQ EFFERV TAB ONE (19:07)
--- NOTE | 2022-12-19 19:29 | EDPHYS ---
Physician Documentation [facility] Name: Alisson Jamil Age: 47 yrs Sex: Female : 1975 Arrival Date: 12/19/2022 Time: 17:37 Bed 14 Private MD: ED Physician Lelia Valles HPI: 12/19 18:00 This 47 yrs old Female presents to ER via EMS with complaints of Abdominal cp Pain. 18:00 The patient presents with abdominal pain. Onset: The symptoms/episode began/occurred cp suddenly, today. Associated signs and symptoms: Pertinent positives: nausea and vomiting, 1 episode of diarrhea. 18:00 The symptoms are described as constant. Severity of pain: in the emergency department cp the pain is actually worse markedly. Patient is a 47-year-old female with past medical history significant for cervical cancer in which she underwent chemo and radiation several years ago. Patient reports sudden onset of abdominal pain this afternoon that she thought was may be due to something she ate at work today. Patient reports vomiting several times and having 1 episode of vomiting before calling EMS to come to the emergency department. Patient reports having 2 C-sections in the past but no other abdominal surgeries. Historical: - Allergies: 17:46 No Known Allergies; bp - PMHx: 17:46 cervical cancer; bp - PSHx: 17:46 ; bp - Immunization history:: Adult Immunizations up to date. - Social history:: Smoking status: Patient denies any tobacco usage or history of. ROS: 18:05 Constitutional: Negative for body aches, chills, fever, poor PO intake. cp 18:05 Eyes: Negative for injury, pain, redness, and discharge. cp 18:05 ENT: Negative for drainage from ear(s), ear pain, sore throat, difficulty swallowing, difficulty handling secretions. 18:05 Cardiovascular: Negative for chest pain, palpitations. 18:05 Respiratory: Negative for cough, shortness of breath, wheezing. 18:05 Abdomen/GI: Positive for abdominal pain, nausea and vomiting, diarrhea, Negative for constipation, hematemesis, black/tarry stool, rectal bleeding. 18:05 Neuro: Negative for altered mental status, dizziness, headache, weakness. 18:05 All other systems are negative. Exam: 18:10 Constitutional: The patient appears in no acute distress, alert, awake, cp non-diaphoretic, non-toxic, well developed, well nourished, in obvious pain, uncomfortable. 18:10 Head/Face: Normocephalic, atraumatic. cp 18:10 Eyes: Periorbital structures: appear normal, Conjunctiva: normal, no exudate, no injection, Sclera: no appreciated abnormality, Lids and lashes: appear normal, bilaterally. 18:10 ENT: External ear(s): are unremarkable, Nose: is normal, Mouth: Lips: moist, Oral mucosa: pink and intact, moist, Posterior pharynx: is normal, airway is patent, no erythema, no exudate. 18:10 Chest/axilla: Inspection: normal, Palpation: is normal, no crepitus, no tenderness. 18:10 Cardiovascular: Rate: normal, Rhythm: regular. 18:10 Respiratory: the patient does not display signs of respiratory distress, Respirations: normal, no use of accessory muscles, no retractions, labored breathing, is not present, Breath sounds: are clear throughout, no decreased breath sounds, no stridor, no wheezing. 18:10 Abdomen/GI: Inspection: abdomen appears normal, Bowel sounds: active, all quadrants, Palpation: soft, in all quadrants, severe abdominal tenderness, in all quadrants. 18:10 Back: CVA tenderness, is absent. 18:10 Neuro: Orientation: to person, place \T\ time. Mentation: is normal. Vital Signs: 17:40 BP 98 / 60; Pulse 80; Resp 24; Temp 98; Pulse Ox 100% ; bp 18:43 BP 121 / 78; Pulse 66; Resp 16; Pulse Ox 100% ; bp 19:14 BP 134 / 94; Pulse 61; Resp 16; Pulse Ox 99% ; vc1 20:00 BP 113 / 93; Pulse 74; Resp 16; Pulse Ox 100% ; vc1 21:00 BP 108 / 73; Pulse 65; Resp 17; Pulse Ox 98% ; vc1 22:00 BP 120 / 86; Pulse 62; Resp 16; Pulse Ox 99% ; vc1 23:00 BP 125 / 90; Pulse 71; Resp 16; Pulse Ox 100% ; vc1 MDM: 17:40 Patient medically screened. cp 18:00 Differential diagnosis: appendicitis, bowel obstruction, cholecystitis, Cholelithiasis, cp diverticulitis, non-specific abd pain, pancreatitis. 19:22 ED course: consult with DR Woods with discussion of today's CT results. Recommends cp transfer with concern for Crohn's disease and no GI services available. ED course: Patient and family requesting transfer to [facility]. 19:25 Data reviewed: vital signs, nurses notes, lab test result(s), radiologic studies, CT cp scan, plain films. 19:25 I considered the following discharge prescriptions or medication management in the emergency department Medications were administered in the Emergency Department. See MAR. Counseling: I had a detailed discussion with the patient and/or guardian regarding: the historical points, exam findings, and any diagnostic results supporting the discharge/admit diagnosis, lab results, radiology results, the need to transfer to another facility, [facility] does not immediately have the required specialist. Response to treatment: the patient's symptoms have markedly improved after treatment. 20:35 ED course: consult with DR Marinelli, hospitalist, will accept patient as transfer. 12/19 17:40 Order name: CBC with Diff; Complete Time: 18:45 12/19 18:45 Interpretation: Normal except: LISA% 82.1; LYM% 13.4. 12/19 17:40 Order name: CMP; Complete Time: 18:45 12/19 18:46 Interpretation: Normal except: K 3.2; GLUC 121; BUN 20; GFR 71; ALK 20. 12/19 17:40 Order name: Lipase; Complete Time: 18:45 12/19 17:40 Order name: Test, Urine; Complete Time: 20:27 12/19 17:40 Order name: Urinalysis w/ reflexes; Complete Time: 20:27 12/19 17:40 Order name: CT Abd/Pelvis - IV Contrast Only; Complete Time: 18:45 12/19 18:47 Interpretation: Report reviewed. 12/19 17:40 Order name: XRAY Chest (1 view); Complete Time: 18:45 12/19 17:40 Order name: IV Saline Lock; Complete Time: 17:44 12/19 17:40 Order name: Labs collected and sent; Complete Time: 17:44 cp Administered Medications: 17:44 Drug: NS 0.9% IV 1000 ml Route: IV; Rate: 1 bolus; Site: left antecubital; bp 19:00 Follow up: IV Status: Completed infusion vc1 17:44 Drug: Famotidine IVP 20 mg Route: IVP; Site: left antecubital; bp 19:14 Follow up: Response: No adverse reaction vc1 17:44 Drug: Ondansetron IVP 4 mg Route: IVP; Site: left antecubital; bp 19:13 Follow up: Response: No adverse reaction vc1 17:44 Drug: morphine IVP or IV 4 mg Route: IVP; Infused Over: 4 mins; Site: left antecubital; bp 19:13 Follow up: Response: No adverse reaction vc1 19:17 Drug: Potassium PO Effervescent Tablet 50 mEq Route: PO; vc1 23:00 Follow up: Response: No adverse reaction vc1 19:54 Drug: metroNIDAZOLE IVPB 500 mg Volume: 100 ml; Route: IVPB; Infused Over: 30 mins; vc1 Site: left antecubital; 20:30 Follow up: IV Status: Completed infusion; IV Intake: 100ml vc1 19:54 Drug: morphine IVP or IV 4 mg Route: IVP; Infused Over: 4 mins; Site: left antecubital; vc1 23:00 Follow up: Response: No adverse reaction; Marked relief of symptoms vc1 20:28 Drug: Ciprofloxacin IVPB 400 mg Volume: 200 ml; Route: IVPB; Infused Over: 60 mins; vc1 Site: left antecubital; 21:28 Follow up: IV Status: Completed infusion; IV Intake: 200ml vc1 Disposition Summary: 12/19/22 19:28 Transfer Ordered Transfer Location: Other Acute Care Facility cp Reason: Higher level of care cp Condition: Stable cp Problem: new cp Symptoms: have improved cp Accepting Physician: DR Marinelli(12/19/22 23:02) vc1 Diagnosis - Nausea with vomiting, unspecified cp - Partial Small Bowel Obstruction cp Forms: - Medication Reconciliation Form cp - SBAR form cp Signatures: Dispatcher [employer] EDMS Sourav Nicole PA PA cp Peltier, Brian RN RN Macey Gomez RN RN vc1 Corrections: (The following items were deleted from the chart) 18:46 18:46 Normal except: K 3.2; GLUC 121; BUN 20; GFR 71. cp cp 21:52 19:28 Doctor cp cp 21:52 19:28 Ileus, unspecified cp cp 23:02 21:52 DR Marinelli cp vc1
--- NOTE | 2022-12-19 19:29 | ER ---
Nurse's Notes [facility] Name: Alisson Jamil Age: 47 yrs Sex: Female : 1975 Arrival Date: 12/19/2022 Time: 17:37 Bed 14 Private MD: Diagnosis: Nausea with vomiting, unspecified;Partial Small Bowel Obstruction Presentation: 12/19 17:40 Chief complaint: EMS states: GEN ABD PAIN AND N/V SINCE 1400. Coronavirus screen: At bp this time, the client does not indicate any symptoms associated with coronavirus-19. Ebola Screen: No symptoms or risks identified at this time. Initial Sepsis Screen: Does the patient meet any 2 criteria? No. Patient's initial sepsis screen is negative. Does the patient have a suspected source of infection? No. Patient's initial sepsis screen is negative. Risk Assessment: Do you want to hurt yourself or someone else? Patient reports no desire to harm self or others. Onset of symptoms was December 19, 2022 at 14:00. Care prior to arrival: IV initiated. 18 GA, in the left antecubital area. 17:40 Method Of Arrival: EMS: [facility] bp 17:40 Acuity: NADYA 3 bp Triage Assessment: 17:46 General: Appears uncomfortable, Behavior is appropriate for age, agitated, anxious. bp Pain: Complains of pain in abdomen. EENT: No deficits noted. Neuro: No deficits noted. Cardiovascular: No deficits noted. Respiratory: No deficits noted. GI: Reports cramping, nausea. : No signs and/or symptoms were reported regarding the genitourinary system. Derm: No deficits noted. Musculoskeletal: No deficits noted. Historical: - Allergies: 17:46 No Known Allergies; bp - PMHx: 17:46 cervical cancer; bp - PSHx: 17:46 ; bp - Immunization history:: Adult Immunizations up to date. - Social history:: Smoking status: Patient denies any tobacco usage or history of. Screenin:47 [facility] ED Fall Risk Assessment (Adult) History of falling in the last 3 months, bp including since admission No falls in past 3 months (0 pts). Abuse screen: Denies threats or abuse. Denies injuries from another. Nutritional screening: No deficits noted. Tuberculosis screening: No symptoms or risk factors identified. Assessment: 17:47 General: SEE TRIAGE NOTE. bp 18:43 Reassessment: PT RETURNED FROM CT. bp 19:00 Reassessment: No changes from previously documented assessment. Patient and/or family vc1 updated on plan of care and expected duration. Pain level reassessed. Patient is alert, oriented x 3, equal unlabored respirations, skin warm/dry/pink. 20:00 Reassessment: No changes from previously documented assessment. Patient and/or family vc1 updated on plan of care and expected duration. Pain level reassessed. Patient is alert, oriented x 3, equal unlabored respirations, skin warm/dry/pink. 21:00 Reassessment: No changes from previously documented assessment. Patient and/or family vc1 updated on plan of care and expected duration. Pain level reassessed. Patient is alert, oriented x 3, equal unlabored respirations, skin warm/dry/pink. 22:00 Reassessment: No changes from previously documented assessment. Patient and/or family vc1 updated on plan of care and expected duration. Pain level reassessed. Patient is alert, oriented x 3, equal unlabored respirations, skin warm/dry/pink. 23:00 Reassessment: No changes from previously documented assessment. Patient and/or family vc1 updated on plan of care and expected duration. Pain level reassessed. Patient is alert, oriented x 3, equal unlabored respirations, skin warm/dry/pink. Vital Signs: 17:40 BP 98 / 60; Pulse 80; Resp 24; Temp 98; Pulse Ox 100% ; bp 18:43 BP 121 / 78; Pulse 66; Resp 16; Pulse Ox 100% ; bp 19:14 BP 134 / 94; Pulse 61; Resp 16; Pulse Ox 99% ; vc1 20:00 BP 113 / 93; Pulse 74; Resp 16; Pulse Ox 100% ; vc1 21:00 BP 108 / 73; Pulse 65; Resp 17; Pulse Ox 98% ; vc1 22:00 BP 120 / 86; Pulse 62; Resp 16; Pulse Ox 99% ; vc1 23:00 BP 125 / 90; Pulse 71; Resp 16; Pulse Ox 100% ; vc1 ED Course: 17:38 Patient arrived in ED. em1 17:38 Sourav Nicole PA is PHCP. cp 17:39 Lelia Valles MD is Attending Physician. cp 17:41 Radiology exam delayed due to IV insertion attempt and/or patient not having nj appropriate IV at this time. 17:42 Radiology exam delayed due to lab results not completed at this time. (BUN/Creatinine). nj 17:43 Roverto Carranza, RN is Primary Nurse. bp 17:44 Maintain EMS IV. Dressing intact. Good blood return noted. Site clean \T\ dry. Gauge \T\ bp site: 18 GA LEFT AC. 17:46 Triage completed. bp 17:47 Patient has correct armband on for positive identification. Bed in low position. Call bp light in reach. Side rails up X2. Adult w/ patient. 18:04 XRAY Chest (1 view) In Process Unspecified. EDMS 18:20 CT Abd/Pelvis - IV Contrast Only In Process Unspecified. EDMS 19:00 Arm band placed on right wrist. vc1 19:14 Report received from SAGAR Layne. vc1 19:23 Initiated transfer with [facility]. rv1 21:00 Pt accepted to [facility] ER by Dr. Marinelli. rv1 23:00 No provider procedures requiring assistance completed. Patient transferred, IV remains vc1 in place. Administered Medications: 17:44 Drug: NS 0.9% IV 1000 ml Route: IV; Rate: 1 bolus; Site: left antecubital; bp 19:00 Follow up: IV Status: Completed infusion vc1 17:44 Drug: Famotidine IVP 20 mg Route: IVP; Site: left antecubital; bp 19:14 Follow up: Response: No adverse reaction vc1 17:44 Drug: Ondansetron IVP 4 mg Route: IVP; Site: left antecubital; bp 19:13 Follow up: Response: No adverse reaction vc1 17:44 Drug: morphine IVP or IV 4 mg Route: IVP; Infused Over: 4 mins; Site: left antecubital; bp 19:13 Follow up: Response: No adverse reaction vc1 19:17 Drug: Potassium PO Effervescent Tablet 50 mEq Route: PO; vc1 23:00 Follow up: Response: No adverse reaction vc1 19:54 Drug: metroNIDAZOLE IVPB 500 mg Volume: 100 ml; Route: IVPB; Infused Over: 30 mins; vc1 Site: left antecubital; 20:30 Follow up: IV Status: Completed infusion; IV Intake: 100ml vc1 19:54 Drug: morphine IVP or IV 4 mg Route: IVP; Infused Over: 4 mins; Site: left antecubital; vc1 23:00 Follow up: Response: No adverse reaction; Marked relief of symptoms vc1 20:28 Drug: Ciprofloxacin IVPB 400 mg Volume: 200 ml; Route: IVPB; Infused Over: 60 mins; vc1 Site: left antecubital; 21:28 Follow up: IV Status: Completed infusion; IV Intake: 200ml vc1 Medication: 17:47 VIS not applicable for this client. bp Intake: 20:30 IV: 100ml; Total: 100ml. vc1 21:28 IV: 200ml; Total: 300ml. vc1 Outcome: 19:28 ER care complete, transfer ordered by . cp 23:00 Transferred by ground EMS to other acute care facility: [facility]. Transfer form vc1 completed. X-rays sent w/ patient. 23:00 Condition: good 23:00 Instructed on the need for transfer. 23:02 Patient left the ED. vc1 Signatures: Dispatcher [employer] Davon Mixon em1 Sourav Nicole PA PA cp Jordan, Nathan nj Peltier, Brian, RN RN bp Macey Gleason RN RN vc1 Anna Nelson rv1
[2022-12-19] MEDS ORDERED: METRONIDAZOLE 500mg IVPB 500 MG/100 ML BAG IV ONE (19:56)
[2022-12-19] MEDS ORDERED: CIPROFLOXACIN 400mg IV 400 MG/200 ML BAG IV ONE (19:56)
[2022-12-19 20:10] LABS: Urine Bacteria <20 /HPF (<20); Urine Bilirubin NEGATIVE (Negative); Urine Blood Negative (Negative); Urine Clarity Clear (Clear); Urine Color Light-Yellow (Yellow); Urine Glucose NEGATIVE (Negative); Urine Protein TRACE (Negative); Urine RBC <5 /HPF (None Seen); Urine Urobilinogen Normal (Normal); Urine WBC Clump Rare /HPF (None Seen); Urine pH 8.5 (5.0-7.0)
[2022-12-19 20:13] LABS: Specific Gravity > 1.030 (1.005-1.030)
[2022-12-19 20:15] LABS: Specific Gravity > 1.030 (1.005-1.030)
[2022-12-19 23:16] VITALS: TEMP 98
[2022-12-19 23:18] VITALS: BP 134/94; O2SAT 99
== END 2022-12-19 23:02 ==
LOC: ER 17:37
DX: K56.600 Partial intestinal obstruction, unspecified as to cause (principal); Z85.41 Personal history of malignant neoplasm of cervix uteri
CPT/HCPCS: 96365; 96361; 85025; 81001; 36415; 81025; 82565; 83690; 80053; 74177; 71045; 96375; 99285; Q9967; J2405; J0744; J7030